=== PATIENT | female | born 1965 | race Caucasian/White ===

== ENCOUNTER → 2017-03-16 | Day surgery (SDC) | payer OTHER ==
[~2017-03-16] MED LIST: AMLODIPINE BESYL5 MG PO; ASPIRIN325 MG PO; BUPIVACAINE HCL 0.5% 10ML MPF VIAL INJ ONE; CEFAZOLIN SOD 2 GM/D5W 50ML 50 ML IV ONE; DEXAMETHASONE SOD PHOS INJ 4 MG/ML VIAL ONE; EPHEDRINE SULFATE INJ 50 MG/10 ML SYR ONE; FENTANYL CITRATE/PF 100MCG/2 ML INJ ONE; IRON325 M1 PO; KETOROLAC TROMETHAMINE 30 MG/ML VIAL ONE; LIDOCAINE HCL 2% LOCAL INJ 5 ML SDV VIAL INJ ONE; LISINOPRIL40 MG PO; LORAZEPAM2 MG PO; MIDAZOLAM HCL 2 MG/2 ML VIAL ONE; NEOSTIGMINE 1 MG/ML 10ML VIAL ONE; ONDANSETRON HCL INJ 2 MG/ML VIAL ONE; PROPOFOL IV EMULSION 10 MG/ML 20 ML VIAL ONE; SEVOFLURANE INHAL SOLN 250 ML PEN BTL ONE; SIMVASTATIN10 MG PO; ZOLPIDEM TARTRA10 MG PO
--- NOTE | 2017-03-16 22:42 | Operative Report ---
DATE OF PROCEDURE: March 16, 2017 AGE: 51 ROOM NUMBER: [facility]. PREOPERATIVE DIAGNOSES 1. 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 2. Hammertoe 2nd digit, right foot. POSTOPERATIVE DIAGNOSES 1. 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 2. Hammertoe 2nd digit, right foot. TITLES OF OPERATION 1. Modified dorsal chilectomy with Cartiva implant, right foot. 2. Arthrodesis, 2nd digit, right foot. ANESTHESIA: General endotracheal. HEMOSTASIS: A right thigh tourniquet at 350 mmHg. PROCEDURE IN DETAIL: The patient was taken operating room in a mildly sedated state, placed upon the operating table in supine position. Following induction of general anesthetic, the right lower extremity was elevated at 60 degrees to exsanguinate before inflating the pneumatic thigh tourniquet 350 mmHg hemostasis. Lower extremity was placed on the operating room table prior to performing the follow procedure. Dorsal chilectomy with implant of Cartiva implant, 1st metatarsophalangeal joint right foot. A linear longitudinal incision made across the dorsomedial aspect of 1st metatarsophalangeal joint of the right foot. Incision was deepened via sharp and blunt dissection at the level of dorsal capsular structure. Care was taken to identify and retract all vital structures encountered. Head of the 1st metatarsal delivered in the surgical site, remodeled utilizing oscillating saw and rotary bur. A Cartiva implant instructor creeler device was then used to create the bone removal and void in the 1st met head. The Cartiva implant was inserted. The area was irrigated with copious amounts of sterile saline solution. Bone was put through its range of motion. A small area was still prominent dorsally, which was further remodeled. The area was then irrigated and closed with a combination of 3-0 Vicryl, 4-0 Vicryl, and 4-0 Prolene. The area was injected with human tissue allograft to facilitate healing. Attention was then directed to the 2nd digit of the right foot and a shortening procedure was performed of the head of the proximal phalanx to create arthrodesis with digital implant from [employer]. A linear longitudinal incision made overlying the proximal interphalangeal joint. The head of the proximal phalanx was delivered from the surgical site, remodeled utilizing oscillating saw. The head of the proximal phalanx was delivered from the surgical site and remodeled after irrigation. A drill was used to facilitate the insertion of the interphalangeal joint fusion device from [employer]. This 2-step implant was inserted distally and then, reamed proximally and inserted appropriately on the proximal aspect. The area was irrigated with copious amounts of sterile saline solution. Deep closure with 3-0 Vicryl and 4-0 nylon. Attention was directed to the distal aspect, where the pin was bent and cut to its appropriate length. The area was then also blocked with 0.5 Marcaine. Decadron LA and a block was achieved and human tissue allograft inserted. The area was then released with pneumatic thigh tourniquet and normal hyperemic flush was all noted to the digits. Appropriate mildly compressive dressings were applied. Patient left the operating room with vital signs stable in apparent satisfactory condition after tolerating both anesthetic procedure very well. Job#: [id number] CQ
== END | disposition home or self-care (01) ==
LOC: OR 08:55
PROVIDERS: ATTEND Podiatrist Foot Surgery
DX: M20.11 Hallux valgus (acquired), right foot (principal); M20.41 Other hammer toe(s) (acquired), right foot; M19.071 Primary osteoarthritis, right ankle and foot; I49.1 Atrial premature depolarization; D64.9 Anemia, unspecified; I10 Essential (primary) hypertension; J45.990 Exercise induced bronchospasm; F41.9 Anxiety disorder, unspecified; Z79.82 Long term (current) use of aspirin; Z86.73 Personal history of transient ischemic attack (TIA), and cerebral infarction without residual deficits
CPT/HCPCS: 28285; 28293; 81025; J1100; J1885; J2001; J2250; J2405; J2710; 76001